=== PATIENT | female | born 1930 | race Caucasian/White ===

== ENCOUNTER 2016-06-05 09:58 | Emergency (ER) | payer OTHER ==
[~2016-06-05] VITALS: Ht 175.3 cm; Wt 67.6 kg
[2016-06-05 10:46] LABS: ABSOLUTE BASOPHIL COUNT 0 /CUMM (0.0-0.2); ABSOLUTE EOSINOPHIL COUNT 0.1 /CUMM (0.0-0.7); ABSOLUTE GRANULOCYTE CT 4.2 /CUMM (1.4-6.5); ABSOLUTE LYMPH COUNT 1.4 /CUMM (1.2-3.4); ABSOLUTE MONOCYTE COUNT 0.3 /CUMM (0.10-0.60); BASOPHIL % 0.2 % (0.0-2.0); EOSINOPHIL % 0.9 % (0-5); GRANULOCYTE % 70.1 % (42.2-75.2); HEMATOCRIT 34.1 % (37-47); MEAN CORPUSCULAR HGB 33.2 PG (27.0-31.0); MEAN CORPUSCULAR HGB CONC 34.2 G/DL (33.0-37.0); MEAN CORPUSCULAR VOLUME 97.1 FL (81.0-99.0); MEAN PLATELET VOLUME 8.8 FL (7.4-10.4); PLATELET COUNT 178 /CUMM (130-400); RED BLOOD CELL CT 3.51 /CUMM (4.20-5.40); WHITE BLOOD CELL COUNT 5.9 /CUMM (4.8-10.8)
--- NOTE | 2016-06-05 11:14 | ED GI/GU/ABDOMINAL COMPLAINT ---
History of Present Illness General Chief Complaint: Abdominal Pain/Flank Pain Stated Complaint: ABD PAIN Source: patient, old records Exam Limitations: no limitations Vital Signs & Intake/Output Vital Signs & Intake/Output Vital Signs Date Time Temp Pulse Resp B/P B/P Pulse O2 O2 Flow FiO2 Mean Ox Delivery Rate 06/05 1730 98.0 78 17 109/53 99 Room Air 06/05 1615 97.8 71 16 155/72 97 Room Air 06/05 1346 98.1 81 16 144/69 98 06/05 1209 97.0 80 18 126/72 99 Room Air 06/05 1018 96 06/05 1007 96.5 97 20 107/71 100 Room Air Room Air Allergies Coded Allergies: meperidine (From DEMEROL) (Intermediate, NAUSEA/VOMITING 06/05/16) propoxyphene (From DARVON) (Intermediate, NAUSEA/VOMITING 06/05/16) Reconcile Medications Calcium Citrate/Vitamin D3 (Citracal + D Maximum Caplet) 315 MG-250 UNIT TABLET 1 TAB PO DAILY SUPPLEMENT (Reported) Multivit-Min/FA/Lycopen/Lutein (Centrum Silver Tablet) 0.4 MG-300 MCG-250 MCG TABLET 1 TAB PO DAILY SUPPLEMENT (Reported) Omeprazole Magnesium (Prilosec Otc) 20 MG TABLET.DR 1 TAB PO DAILY ANTACID ( Reported) Triage Note: PT TO ED WITH C/O LEFT LOWER GROIN AREA PAIN X 10 DAYS, WITH DIARRHEA "SOMETIMES IT'S NORMAL THEN A HALF HOUR LATER IT'S DIARRHEA, NOW I'M INCONTINENT OF STOOL". PT STATING STOOL IS REGULAR BROWN COLOR. Triage Nurses Notes Reviewed? yes ? n Is pt currently ? No HPI: Patient presents for evaluation of sharp left lower quadrant and pelvic pain that began intermittently and abruptly about 2 weeks ago. Starting about 3 days ago patient began having diarrhea with incontinence. The episodes of diarrhea have occurred up to 7 times a day. Patient has also had a decrease in appetite and weight loss of about 6 pounds. Stools have been nonbloody. Patient has felt nauseous but has had no vomiting. Denies urinary incontinence or dysuria. No recent antibiotics or known ill contacts. Past History Travel History Traveled to [place] past 21 day No Medical History Any Pertinent Medical History? 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 No Review of Systems Review of Systems Constitutional: Reports: no symptoms. EENTM: Reports: no symptoms. Respiratory: Reports: no symptoms. Cardiovascular: Reports: no symptoms. GI: Reports: see HPI. Genitourinary: Reports: no symptoms. Musculoskeletal: Reports: no symptoms. Skin: Reports: no symptoms. Neurological/Psychological: Reports: no symptoms. Hematologic/Endocrine: Reports: no symptoms. Immunologic/Allergic: Reports: no symptoms. All Other Systems: Reviewed and Negative Physical Exam Physical Exam Gastrointestinal: SEE BELOW Comments: Gen.: Well-nourished, well-developed, no acute respiratory distress. Uncomfortable appearing. Head: Normocephalic, atraumatic. Eyes: Normal inspection bilaterally Ears: Normal inspection bilaterally Nose: Normal inspection Throat/mouth : Moist mucosa Neck: Supple, full range of motion, no goiter Heart: Regular rate and rhythm, no murmurs rubs or gallops Lungs: Clear to auscultation bilaterally with normal air entry Chest: Nontender Back: Normal range of motion no CVAT Abdomen: Soft, left lower quadrant and suprapubic abdominal tenderness with voluntary guarding, nondistended, normal bowel sounds Extremities: Normal range of motion grossly, equal radial pulses, no cyanosis clubbing or edema Neurologic: Cranial nerves grossly intact, speech is clear Skin: warm and dry Psychiatric: Calm, cooperative, no apparent delusions or hallucinations Core Measures ACS in differential dx? No Severe Sepsis Present: No Septic Shock Present: No Progress Differential Diagnosis: kidney stone, ovarian cyst, ovarian torsion, UTI/pyelo Plan of Care: Orders Procedure Date/time Status Regular Diet 06/05 D Active LACTIC ACID 06/05 2000 Active LACTIC ACID 06/05 1701 Active Add-on Test (ER Only) 06/05 1114 Active URINALYSIS 06/05 1114 Complete LIPASE 06/05 1039 Complete COMPREHENSIVE METABOLIC PANEL 06/05 1023 Complete CBC WITHOUT DIFFERENTIAL 06/05 1023 Complete Laboratory Tests 06/05/16 1717: Lactic Acid Pending 06/05/16 1611: Urine Color YEL, Urine Clarity CLEAR, Urine pH 6.0, Ur Specific [place] 1.020, Urine Protein TRACE H, Urine Ketones 15 H, Urine Nitrite NEG, Urine Bilirubin NEG, Urine Urobilinogen 0.2, Ur Leukocyte Esterase TRACE H, Ur Microscopic SEDIMENT EXAMINED, Urine RBC RARE, Urine WBC 5-10 H, Ur Epithelial Cells FEW, Urine Bacteria FEW H, Hyaline Casts 10-15 H, Granular Casts 1-3 H, Urine Hemoglobin NEG, Urine Glucose NEG 06/05/16 1039: Anion Gap 13, Estimated GFR 31 L, BUN/Creatinine Ratio 10.0, Glucose 120 H, Calcium 10.3 H, Total Bilirubin 1.2, AST 31, ALT 31, Alkaline Phosphatase 108, Total Protein 7.2, Albumin 4.0, Globulin 3.2, Albumin/Globulin Ratio 1.3, Lipase 150, CBC w Diff NO MAN DIFF REQ, RBC 3.51 L, MCV 97.1, MCH 33.2 H, RDW 13.0, MPV 8.8, Gran % 70.1, Lymphocytes % 23.9, Monocytes % 4.9, Eosinophils % 0.9, Basophils % 0.2, Absolute Granulocytes 4.2, Absolute Lymphocytes 1.4, Absolute Monocytes 0.3, Absolute Eosinophils 0.1, Absolute Basophils 0, PUBS MCHC 34.2 Diagnostic Imaging: Discussed w/RAD: CT Scan, Ultrasound. Radiology Impression: PATIENT: MARIA L DYSON PRESENT AGE: 86 PATIENT ACCOUNT NO: [id number] : 31 LOCATION: [facility] ORDERING PHYSICIAN: ANYA LAMBERT MD SERVICE DATE: 06/05/16 EXAM TYPE: CAT - CT ABD & PELVIS W/O IV CONTRAS EXAMINATION: CT ABDOMEN AND PELVIS WITHOUT CONTRAST CLINICAL INFORMATION: Left lower quadrant, suprapubic abdominal pain and tenderness. COMPARISON: 03/22/2013 TECHNIQUE: Multidetector volumetric imaging was performed from the superior aspect of the liver through the pubic symphysis. Sagittal and coronal reformatted images were obtained on the technologist's workstation. DLP: 271 mGy-cm FINDINGS: LUNG BASES: The lung bases are clear. Coronary artery calcifications noted. LIVER, GALLBLADDER, AND BILIARY TREE: The liver is normal in size, shape, and attenuation. No focal hepatic lesion or biliary ductal dilatation is present. Status post cholecystectomy. PANCREAS: Unremarkable. SPLEEN: Unremarkable. ADRENAL GLANDS: Unremarkable. KIDNEYS AND URETERS: The kidneys are normal in size, shape, and attenuation. There is moderate left hydroureteronephrosis. The ureter is tortuous and coarse. This extends to a prominent cystic structure in the central pelvis where the ureter is no longer visualized. The ureter is likely compressed and obstructed. The right kidney demonstrates no hydronephrosis. The ureter is decompressed. BLADDER : The bladder is inferiorly displaced but otherwise appears unremarkable. GASTROINTESTINAL TRACT: The stomach is unremarkable. There is a 1.2 cm lipoma in the wall of the fourth portion of the duodenum. The small bowel is otherwise unremarkable. There is colonic diverticulosis without diverticulitis. No acute inflammatory changes are seen. Distal colonic anastomotic suture line is noted. The distal colon is also displaced, to the right, by the cystic pelvic mass. ABDOMINAL WALL: No significant hernia is appreciated. LYMPH NODES: Normal. VASCULAR: Moderate atherosclerotic calcifications. PELVIC VISCERA: There is a cystic mass in the central pelvis which measures 14.1 cm AP by 10.8 cm transverse by 12.7 cm CC. This measures slightly higher than simple fluid attenuation. The prior CT demonstrated prominent fluid-filled distended endometrium with no adnexal mass. The current appearance is more suspicious for an adnexal mass, as the uterus is not well visualized on the current study an surgical clips are noted. Multiple phleboliths are present in the pelvis. OSSEOUS STRUCTURES: Multilevel degenerative changes of the spine. Grade 1 anterolisthesis of L3 on L4 and L4 on L5. Multilevel disc space narrowing. IMPRESSION: Prominent, likely cystic pelvic mass with mass effect upon the adjacent structures. Compression by the mass likely results in moderate left hydroureteronephrosis. There is also mass effect upon the adjacent bowel. While the origin is nonspecific, the appearance favors adnexal origin. DICTATED BY: PAOLA SERRATO MD DATE/TIME DICTATED:06/05/161238 MAINTENANCE SUPERVISOR: STACY DATE/TIME TRANSCRIBED:06/05/161238 CONFIDENTIAL, DO NOT COPY WITHOUT APPROPRIATE AUTHORIZATION. <Electronically signed in Other Vendor System> SIGNED BY: PAOLA SERRATO MD 06/05/16 1250, PATIENT: MARIA L DYSON PRESENT AGE: 86 PATIENT ACCOUNT NO: [id number] : 31 LOCATION: [facility] ORDERING PHYSICIAN: ANYA LAMBRET MD SERVICE DATE: 06/05/16-1253 EXAM TYPE: US - US-PELVIC MASS DIAG EXAMINATION: ULTRASOUND OF THE PELVIS CLINICAL INFORMATION: Further assessment of likely left ovarian cystic mass seen on CT scan. COMPARISON: CT scan of the abdomen pelvis dated and 03/22/2013. TECHNIQUE: Transabdominal pelvic ultrasound. Real-time assessment by the reading radiologist was performed. FINDINGS: Uterus: Surgically absent. Ovaries: The ovaries bilaterally are not distinctly visualized. Instead, there is a large complex cystic pelvic mass, which extends superiorly into the left upper pelvis, measuring 17.0 x 9.7 x 1.2 cm. There is a large lobulated solid echogenic component seen along the posterior left lateral margin of the cystic mass, measuring at least 3.6 x 2.7 x 5.1 cm. Other low level internal echoes are also noted. With color Doppler imaging, no discrete flow is visualized within this complex cystic mass. Bladder/left ureter: This mass causes obstruction of the left ureter as seen on the CT scan with moderate left-sided hydroureteronephrosis seen. The left ureter distal to the mass is not discretely visualized. The bladder is only partially distended and grossly unremarkable. No urine jets were seen. IMPRESSION: 1. Large complex cystic mass with nodular peripheral solid components seen extending from the pelvis into the left lower abdomen. 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 Resultant obstruction of the left kidney is seen with moderate hydroureteronephrosis noted. 2. Status post hysterectomy. DICTATED BY: DALI AMATO MD. DATE/TIME DICTATED:06/05/161444 MAINTENANCE SUPERVISOR:STACY DATE/ TIME TRANSCRIBED:06/05/161444 CONFIDENTIAL, DO NOT COPY WITHOUT APPROPRIATE AUTHORIZATION. <Electronically signed in Other Vendor System> SIGNED BY: DALI AMATO MD 06/05/16 4326 Initial ED EKG: none Comments: 06/05/2016 4:17:19 PM I updated Maria L earlier and then updated her daughter. I' ve discussed her case with Dr. Mike who felt we should consult Dr. Simons regarding her treatment plan. 06/05/2016 4:31:10 PM patient's case discussed with Dr. mcrae who feels that the patient would be best served at [facility]. 06/05/2016 5:02:32 PM patient's case discussed with dr. bueno, who has accepted the patient in transfer. He asked to add a lactic acid level. Departure Departure Disposition: OTHER GENERAL HOSPITAL (ACUTE) Condition: Stable Clinical Impression Primary Impression: Pelvic mass in female Referrals: DAHIANA MIKE MD (PCP/Family) Departure Forms: Customer Survey General Discharge Information
--- NOTE | 2016-06-05 12:50 | CT SCAN REPORT ---
EXAMINATION: CT ABDOMEN AND PELVIS WITHOUT CONTRAST CLINICAL INFORMATION: Left lower quadrant, suprapubic abdominal pain and tenderness. COMPARISON: 03/22/2013 TECHNIQUE: Multidetector volumetric imaging was performed from the superior aspect of the liver through the pubic symphysis. Sagittal and coronal reformatted images were obtained on the technologist's workstation. DLP: 271 mGy-cm FINDINGS: LUNG BASES: The lung bases are clear. Coronary artery calcifications noted. LIVER, GALLBLADDER, AND BILIARY TREE: The liver is normal in size, shape, and attenuation. No focal hepatic lesion or biliary ductal dilatation is present. Status post cholecystectomy. PANCREAS: Unremarkable. SPLEEN: Unremarkable. ADRENAL GLANDS: Unremarkable. KIDNEYS AND URETERS: The kidneys are normal in size, shape, and attenuation. There is moderate left hydroureteronephrosis. The ureter is tortuous and coarse. This extends to a prominent cystic structure in the central pelvis where the ureter is no longer visualized. The ureter is likely compressed and obstructed. The right kidney demonstrates no hydronephrosis. The ureter is decompressed. BLADDER: The bladder is inferiorly displaced but otherwise appears unremarkable. GASTROINTESTINAL TRACT: The stomach is unremarkable. There is a 1.2 cm lipoma in the wall of the fourth portion of the duodenum. The small bowel is otherwise unremarkable. There is colonic diverticulosis without diverticulitis. No acute inflammatory changes are seen. Distal colonic anastomotic suture line is noted. The distal colon is also displaced, to the right, by the cystic pelvic mass. ABDOMINAL WALL: No significant hernia is appreciated. LYMPH NODES: Normal. VASCULAR: Moderate atherosclerotic calcifications. PELVIC VISCERA: There is a cystic mass in the central pelvis which measures 14.1 cm AP by 10.8 cm transverse by 12.7 cm CC. This measures slightly higher than simple fluid attenuation. The prior CT demonstrated prominent fluid-filled distended endometrium with no adnexal mass. The current appearance is more suspicious for an adnexal mass, as the uterus is not well visualized on the current study an surgical clips are noted. Multiple phleboliths are present in the pelvis. OSSEOUS STRUCTURES: Multilevel degenerative changes of the spine. Grade 1 anterolisthesis of L3 on L4 and L4 on L5. Multilevel disc space narrowing. IMPRESSION: Prominent, likely cystic pelvic mass with mass effect upon the adjacent structures. Compression by the mass likely results in moderate left hydroureteronephrosis. There is also mass effect upon the adjacent bowel. While the origin is nonspecific, the appearance favors adnexal origin.
--- NOTE | 2016-06-05 14:58 | ULTRASOUND REPORT ---
EXAMINATION: ULTRASOUND OF THE PELVIS CLINICAL INFORMATION: Further assessment of likely left ovarian cystic mass seen on CT scan. COMPARISON: CT scan of the abdomen pelvis dated 06/05/2016 and 03/22/2013. TECHNIQUE: Transabdominal pelvic ultrasound. Real-time assessment by the reading radiologist was performed. FINDINGS: Uterus: Surgically absent. Ovaries: The ovaries bilaterally are not distinctly visualized. Instead, there is a large complex cystic pelvic mass, which extends superiorly into the left upper pelvis, measuring 17.0 x 9.7 x 1.2 cm. There is a large lobulated solid echogenic component seen along the posterior left lateral margin of the cystic mass, measuring at least 3.6 x 2.7 x 5.1 cm. Other low level internal echoes are also noted. With color Doppler imaging, no discrete flow is visualized within this complex cystic mass. Bladder/left ureter: This mass causes obstruction of the left ureter as seen on the CT scan with moderate left-sided hydroureteronephrosis seen. The left ureter distal to the mass is not discretely visualized. The bladder is only partially distended and grossly unremarkable. No urine jets were seen. IMPRESSION: 1. Large complex cystic mass with nodular peripheral solid components seen extending from the pelvis into the left lower abdomen. 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 Resultant obstruction of the left kidney is seen with moderate hydroureteronephrosis noted. 2. Status post hysterectomy.
[2016-06-05] MEDS ORDERED: CENTRUM SILVER1 EAC3 PO (16:17)
[2016-06-05] MEDS ORDERED: PRILOSEC OTC20 M1 PO (16:17)
[2016-06-05] MEDS ORDERED: CITRACAL + D M1 EACH PO (16:18)
[2016-06-05 17:30] VITALS: BP 109/53
== END 2016-06-05 17:54 | disposition short-term general hospital (02) ==
LOC: ERH 09:58
PROVIDERS: Emergency Medicine
DX: R19.09 Other intra-abdominal and pelvic swelling, mass and lump (principal); K21.9 Gastro-esophageal reflux disease without esophagitis; Z87.891 Personal history of nicotine dependence
CPT/HCPCS: 74176; 81001; 96374; 96375; 96376; J2405

== ENCOUNTER 2016-07-20 10:37 | Emergency (ER) | payer OTHER ==
[~2016-07-20] VITALS: Ht 175.3 cm; Wt 63.5 kg
[~2016-07-20 10:37] MED LIST: CENTRUM SILVER1 EAC3 PO; CITRACAL + D M1 EACH PO; PRILOSEC OTC20 M1 PO
--- NOTE | 2016-07-20 11:06 | ED GI/GU/ABDOMINAL COMPLAINT ---
History of Present Illness General Chief Complaint: General Adult Stated Complaint: RECTAL BLEEDING Source: patient, old records Exam Limitations: no limitations Vital Signs & Intake/Output Vital Signs & Intake/Output Vital Signs Date Time Temp Pulse Resp B/P B/P Pulse O2 O2 Flow FiO2 Mean Ox Delivery Rate 07/20 1345 97.6 86 18 112/60 100 Room Air 06/ 1330 97.6 89 16 110/56 99 Room Air / 1323 97.7 80 20 110/56 97 Room Air / 1058 99 Room Air / 1041 96.8 90 16 128/78 100 Room Air Allergies Coded Allergies: meperidine (From DEMEROL) (Intermediate, NAUSEA/VOMITING 06/05/16) propoxyphene (From DARVON) (Intermediate, NAUSEA/VOMITING 06/05/16) Reconcile Medications Calcium Citrate/Vitamin D3 (Citracal + D Maximum Caplet) 315 MG-250 UNIT TABLET 1 TAB PO DAILY SUPPLEMENT (Reported) Multivit-Min/FA/Lycopen/Lutein (Centrum Silver Tablet) 0.4 MG-300 MCG-250 MCG TABLET 1 TAB PO DAILY SUPPLEMENT (Reported) Omeprazole Magnesium (Prilosec Otc) 20 MG TABLET.DR 1 TAB PO DAILY ANTACID ( Reported) Triage Note: PT TO ED WITH RECTAL BLEEDING. STATES SHE HAD A CYST REMOVAL IN MAY. ON STARTED TO HAVE BLEEDING AND PCP TOLD HER IT WAS NORMAL DUE TO THE PROCEDURE SHE HAD. STATES THAT STOOL IS DARK RED AND SOFT AND HAS BEEN CONSISTENT SINCE . DENIES ANY ABD PAIN. Triage Nurses Notes Reviewed? yes ? N Is pt currently ? No Onset: Gradual Duration: constant Timing: recent history Severity Numbers: 5 Location: generalized abdomen HPI: Patient is an 86-year-old female with a past medical history of osteoarthritis, in 2014 patient was noted to have concerns of uterine and colon cancer in WHICH she had a total hysterectomy and a partial colectomy performed, patient also had concerned of GI bleed in 2013 due to mesenteric ischemia WITH admission patient also received cholecystectomy, patient in May 2016 was evaluated at [place] emergency room for concerns of abdominal pain where she had significant findings of a 17 x 9 CM pelvic mass which she was then transferred to [facility] where she had surgical removal of the pelvic mass and partial colectomy removed. Patient states that she has been doing well since her surgery in which her oncologist AT [facility] DR. SOMMER where patient presents to emergency room with concerns of rectal bleeding for the past 6 days. Patient states that she has spontaneous bleeds approximate twice a day however in the last 24 hours the bleeding has persistently worsened. Patient has associated symptoms today of shortness of breath lightheaded sensation dizziness and PALE complexion. Patient was evaluated by DR. SOMMER on in which he stated that the symptoms were common and reassurance was provided. Patient did receive outpatient CT scan today prior to arrival. Patient currently denies any fever chills chest pain arm pain jaw pain abdominal pain nausea vomiting dysuria hematuria Last bowel movement was yesterday noted to have surrounding bright red blood and formed stool. Patient is able to tolerate by mouth (GEOFF CRAIG) Past History Travel History Traveled to [facility] past 21 day No Medical History Any Pertinent Medical History? see below for history Neurological: NONE EENT: NONE Cardiovascular: NONE Respiratory: NONE Gastrointestinal: diverticulitis, GERD, GI BLEED BOWEL CA MESENTERIC ISCHEMIA Hepatic: cirrhosis Renal: NONE Musculoskeletal: osteoarthritis Psychiatric: NONE Endocrine: NONE Blood Disorders: NONE Cancer(s): UTERINE CA, BOWEL CA ROCK SINGER/Reproductive: NONE Surgical History Surgical History: cholecystectomy, colon resection, hysterectomy Psychosocial History Who do you live with Spouse Services at Home NONE What is your primary language Kyrgyz Tobacco Use: Never used Family History Hx Contributory? No (GEOFF CRAIG) Review of Systems Review of Systems Constitutional: Reports: see HPI, weakness. EENTM: Reports: no symptoms. Respiratory: Reports: see HPI, short of breath. Cardiovascular: Reports: no symptoms. GI: Reports: see HPI, bloody stool. Denies: abdominal pain. Genitourinary: Reports: no symptoms. Musculoskeletal: Reports: no symptoms. Skin: Reports: no symptoms. Neurological/Psychological: Reports: no symptoms. Hematologic/Endocrine: Reports: no symptoms. Immunologic/Allergic: Reports: no symptoms. All Other Systems: Reviewed and Negative (GEOFF CRAIG) Physical Exam Physical Exam General Appearance: well developed/nourished, no apparent distress Gastrointestinal: normal bowel sounds, soft, tenderness Rectal: normal rectal tone, bloody stool, NOTED DRY BLOOD AROUND THE RECTAL REGION BRIGHT RED BLOOD NOTED AFTER DIGITAL RECTAL EXAM Comments: Well-developed well-nourished person in no acute distress HEENT: Normal EENT exam, Neck: Supple, no lymphadenopathy, normal range of motion without pain or tenderness Back: Nontender, no CVA tenderness. Cardiovascular: Regular rate and rhythms no murmurs rubs or gallops, normal JVP Respiratory: Chest nontender. No respiratory distress.breath sounds clear to auscultation bilaterally Abdomen: Soft, GENERALIZED point tenderness noted Extremity: No edema, no calf tenderness to palpation, normal and equal pulses. Neuro: Alert oriented x3, motor sensory normal, Skin: No appreciable rash on exposed skin, skin is warm and dry. Psych: Mood and affect is normal, memory and judgment is normal. Core Measures ACS in differential dx? No Severe Sepsis Present: No Septic Shock Present: No (DARSHAN MARTINEZ,GEOFF) Progress Differential Diagnosis: AAA, AMI, appendicitis, biliary colic, bowel obstruction , colon cancer, cholecystitis, diverticulitis, endometritis, esophageal varices, gastritis, hepatitis, hernia, hemorrhoids, ischemic bowel, inflamm bowel dis, kidney stone, ovarian cyst, ovarian torsion, pancreatitis, PID/cervicitis, peptic ulcer, PUD/GERD, perforated viscous, SBO, UTI/pyelo Plan of Care: Orders Procedure Date/time Status BLOOD PRODUCT PICKUP 07/20 1259 Active LEUKOCYTE POOR (PACKED CELLS) 07/20 1226 Active EKG 07/20 1130 Active MISTAKE 07/20 1127 Active PARTIAL THROMBOPLASTIN TIME 07/20 1117 Complete PROTHROMBIN TIME 07/20 1117 Complete COMPREHENSIVE METABOLIC PANEL 07/20 1117 Complete CBC WITHOUT DIFFERENTIAL 07/20 1117 Complete TYPE & SCREEN (NOT X-MATCH) 07/20 1117 Active Laboratory Tests 07/20/16 1145: Anion Gap 10, Estimated GFR 39 L, BUN/Creatinine Ratio 29.2 H, Glucose 88, Calcium 9.1, Total Bilirubin 0.9, AST 26, ALT 34, Alkaline Phosphatase 101, Total Protein 5.8 L, Albumin 3.2 L, Globulin 2.6, Albumin/Globulin Ratio 1.2, PT 11.6, INR 1.11, APTT 38 H, CBC w Diff MAN DIFF ORDERED, RBC 2.14 L, MCV 94.3, MCH 31.3 H, RDW 14.9 H, MPV 8.8, Gran % 64.2, Lymphocytes % 28.8, Monocytes % 6.2, Eosinophils % 0.3, Basophils % 0.5, Absolute Granulocytes 3.5, Absolute Lymphocytes 1.6, Absolute Monocytes 0.3, Absolute Eosinophils 0, Absolute Basophils 0, Platelet Estimate DECREASED, Hypochromic-Microcytic 2+, Anisocytosis 1+, PUBS MCHC 33.1 Patient on initial examination was in no apparent distress nontoxic-appearing normal tensive and afebrile. Patient does show concerns of GI bleed in which there is noted bright red blood from rectum CT scan was resulted showing concerns of a new heterogeneous pelvic mass that has reoccurred in which I discussed the scan with patient who was aware I also discussed patient with [facility]ON[facility] DR JACKSON who advised patient to be accepted under his service for transfer for specialty care and further evaluation treatment. Patient did sign consent form for blood transfusion which patient Discussed disposition plan with Dr. Mike who was aware of plan and agrees. Discussed disposition plan with case management who was aware. Discussed disposition plan with Dr. ANDERSON who was aware and agrees Upon transfer patient looks well no apparent distress and has no questions and agrees with transfer and signed consent form (GEOFF CRAIG) Diagnostic Imaging: Viewed by Me: CT Scan. Radiology Impression: acute abnormality Initial ED EKG: normal p-waves, normal QRS complex, 85 BPM Comments: PATIENT: BRAYAN DYSON PRESENT AGE: 86 PATIENT ACCOUNT NO: [id number] : 31 LOCATION: [facility] ORDERING PHYSICIAN: STEFF SOMMER MD SERVICE DATE: 07/20/16 EXAM TYPE: CAT - CT ABD & PELVIS W IV CONTRAST; CT CHEST W IV CONTRAST EXAMINATION: CT SCAN OF THE CHEST WITH CONTRAST CT SCAN OF THE ABDOMEN AND PELVIS WITH CONTRAST CLINICAL INFORMATION: Endometrial cancer. COMPARISON: CT abdomen and pelvis 06/05/2016. CT chest, abdomen, pelvis 05/23/2014. DLP: 271 mGy-cm. TECHNIQUE: Axial images of the chest, abdomen, and pelvis were obtained utilizing 100 mL Omnipaque-300 contrast and oral contrast. Reformatted images were reviewed. No adverse reaction reported. FINDINGS: Thorax: There are multifocal tubular/nodular opacities within the anterior aspect of the right upper lobe on images 137-175/1000. These were present on examination 05/23/2014. A few other scattered calcified and noncalcified tiny pulmonary nodules were present in 2014. No new suspicious pulmonary nodules. No pleural effusion. The trachea and central airways are patent. No new mediastinal adenopathy. Scattered atherosclerotic disease including coronary artery calcification. Abdomen/Pelvis: No pneumoperitoneum or ascites. No focal hepatic, pancreatic, splenic, or adrenal lesion. Cholecystectomy clips noted. There is nonspecific intrahepatic biliary ductal dilatation in the left lobe of the liver, coronal image 35/95. There is left-sided hydroureteronephrosis extending to the left hemipelvis, where there is amorphous heterogeneous masslike soft tissue along the left pelvic sidewall measuring approximately 5.4 x 3.5 x 5.9 cm. The hydronephrosis was present on prior CT scan. No right-sided hydronephrosis. There is a small chronic right renal cyst. No suspicious renal mass. Bowel gas pattern is nonobstructive. No evidence of acute bowel inflammation. Surgical anastomotic material in the sigmoid colon. Colonic diverticulosis without evidence of diverticulitis. Postsurgical changes of the ventral abdominal wall with associated scarring. Surgical clip is noted within the ventral abdominal wall as well as within the anterior aspect of the lower peritoneal cavity. Numerous pelvic phleboliths. Scattered atherosclerotic disease. No pathologically enlarged lymph nodes are demonstrated. The bladder is unremarkable. The uterus is absent. No suspicious right adnexal mass. Musculoskeletal: No acute osseous abnormalities. No suspicious lytic or blastic lesion. There is grade 1 anterolisthesis of L3 on L4 and L4 on L5. Multilevel degenerative changes of the spine. IMPRESSION: 1. Interval resection of the large cystic pelvic mass described on previous CT 06/05/2016. There is new heterogeneous soft tissue mass along the left pelvic sidewall (see hall images). Persistent left hydroureteronephrosis extending from this amorphous mass. 2. Chronic endobronchial and small pulmonary nodules (see hall images). This includes branching endobronchial nodular opacification in the right upper lobe. No convincing thoracic metastatic disease. 3. No adenopathy. 4. Diverticulosis without evidence of diverticulitis. 5. Nonspecific left intrahepatic biliary ductal dilatation. Attention on follow-up imaging recommended. 6. Diffuse atherosclerotic disease including coronary artery calcification. 7. Additional findings as described above. DICTATED BY: IRMA MABRY MD DATE/TIME DICTATED:07/20/161121 ORDER PULLER:STACY DATE/TIME TRANSCRIBED:07/20/161121 (GEOFF CRAIG) Departure Departure Disposition: OTHER GENERAL HOSPITAL (ACUTE) Condition: Stable Clinical Impression Primary Impression: Pelvic mass Secondary Impressions: Anemia, GI bleed Referrals: DAHIANA MIKE MD (PCP/Family) Departure Forms: Customer Survey General Discharge Information (GEOFF CRAIG) PA/MAIL DELIVERY SUPERVISOR Co-Sign Statement Statement: ED Attending supervision documentation- x I saw and evaluated the patient. I have also reviewed all the pertinent lab results and diagnostic results. I agree with the findings and the plan of care as documented in the PA's/MAIL DELIVERY SUPERVISOR's documentation. [] I have reviewed the ED Record and agree with the PA's/MAIL DELIVERY SUPERVISOR's documentation. [] Additions or exceptions (if any) to the PAs/MAIL DELIVERY SUPERVISOR's note and plan are summarized below: [] (MONICA AGUIAR,MONA) Critical Care Note Critical Care Note Critical Care Time: 75-104 min (GEOFF CRAIG)
[2016-07-20 12:01] LABS: ABSOLUTE BASOPHIL COUNT 0 /CUMM (0.0-0.2); ABSOLUTE EOSINOPHIL COUNT 0 /CUMM (0.0-0.7); ABSOLUTE GRANULOCYTE CT 3.5 /CUMM (1.4-6.5); ABSOLUTE LYMPH COUNT 1.6 /CUMM (1.2-3.4); ABSOLUTE MONOCYTE COUNT 0.3 /CUMM (0.10-0.60); MEAN PLATELET VOLUME 8.8 FL (7.4-10.4); PLATELET COUNT 140 /CUMM (130-400)
[2016-07-20 12:07] LABS: BASOPHIL % 0.5 % (0.0-2.0); EOSINOPHIL % 0.3 % (0-5); GRANULOCYTE % 64.2 % (42.2-75.2); MEAN CORPUSCULAR HGB 31.3 PG (27.0-31.0); MEAN CORPUSCULAR HGB CONC 33.1 G/DL (33.0-37.0); MEAN CORPUSCULAR VOLUME 94.3 FL (81.0-99.0); RBC DISTRIBUTION WIDTH 14.9 % (11.5-14.5); WHITE BLOOD CELL COUNT 5.4 /CUMM (4.8-10.8)
[2016-07-20 12:11] LABS: PT 11.6 SEC (9.4-12.5); PTT 38 SEC (25-37)
[2016-07-20 12:22] LABS: HEMATOCRIT 20.2 % (37-47); RED BLOOD CELL CT 2.14 /CUMM (4.20-5.40)
[2016-07-20 13:45] VITALS: BP 112/60
== END 2016-07-20 14:24 | disposition short-term general hospital (02) ==
LOC: ERH 10:37
PROVIDERS: Physician Assistant
DX: R19.09 Other intra-abdominal and pelvic swelling, mass and lump (principal); K92.2 Gastrointestinal hemorrhage, unspecified; D64.9 Anemia, unspecified; K74.60 Unspecified cirrhosis of liver
CPT/HCPCS: 86920; 93005; 93010; 99291; P9016

== ENCOUNTER 2017-01-07 10:37 | Emergency (ER) | payer OTHER ==
[~2017-01-07] VITALS: Ht 175.3 cm; Wt 68.5 kg
[~2017-01-07 10:37] MED LIST changes: +LASIX20 M1 PO; +OMEPRAZOLE20 M3 PO
--- NOTE | 2017-01-07 11:23 | ED GENERAL ADULT ---
History of Present Illness General Chief Complaint: General Adult Stated Complaint: WEAK/SOB Source: patient, family Exam Limitations: no limitations Vital Signs & Intake/Output Vital Signs & Intake/Output Vital Signs Date Time Temp Pulse Resp B/P B/P Pulse O2 O2 Flow FiO2 Mean Ox Delivery Rate 01/07 1747 99.2 94 20 137/64 98 Room Air 01/07 1724 98.6 85 19 128/78 96 Room Air 01/07 1533 98.1 94 20 122/60 97 Room Air 01/07 1350 96.4 87 18 124/60 94 01/07 1347 98.4 96 20 114/73 98 Room Air 01/07 1332 98.6 98 20 124/60 99 Room Air 01/07 1102 100 Room Air 01/07 1048 98.1 95 20 109/55 98 Allergies Coded Allergies: meperidine (From DEMEROL) (Intermediate, NAUSEA/VOMITING 06/05/16) propoxyphene (From DARVON) (Intermediate, NAUSEA/VOMITING 06/05/16) aspirin (UNKNOWN 11/14/16) PER SPR ORDER SHEET FROM 11/14/16. -CG 11/14/16 Reconcile Medications Furosemide (Lasix) 20 MG TABLET 1 TAB PO DAILY PRN leg swelling (Reported) Omeprazole 20 MG TABLET.DR 1 TAB PO DAILY stomach (Reported) Triage Note: 86 YEAR OLD FEMALE TO ER VIA AMBULANCE FROM HER HOME FOR WEAKNESS AND SOB, PT ALERT AND ORIENTED ON ARRIVAL AND STATES THAT SHE HAS ENDOMETRIAL CANCER THAT CHEMO HAS NOT HELPED, PT STATES THAT SHE NO LONGER WANTS CHEMOTHERAPY DUE TO IT DOES NOT HELP AND IT ONLY MAKES HER SICK, PT HAS BEEN [facility]LO[facility]SFUS[facility] AND STATES THAT SHE WAS TO WEAK TODAY SO SHE CALLED AMBULANCE AND CAME TO ER FOR TRANSFUSION. PT COLOR PALE , ALERT AND ORIENTED O2 SAT 97 % ON RA. PT REQUESTING TO STAY IN HER NIGHT GOWN AND ROBE DUE TO SHE IS COLD AND DOES NOT WANT TO CHANGE. DENIES CP/URINARY SYMPTOMS . Triage Nurses Notes Reviewed? yes Onset: Gradual Duration: week(s): Timing: recent history Injury Environment: home Severity: severe HPI: 86YO female with hx of stage III endometrial cancer, AML presents to emergency room with fatigue and shortness of breath by 2 days. Patient receives blood transfusion treatments once a week, and reports feeling much better for 2-3 days afterwards. Patient's last blood transfusion was last Thursday, she was due for an office visit today at the cancer center. Patient states that today her weakness was the worst it has been, will to get out of bed and go to her appointment with oncology. Patient states that an ambulance came to take her for blood transfusion here in the ED today. (Laine Streeter) Past History Travel History Traveled to [place] past 21 day No Medical History Any Pertinent Medical History? see below for history Neurological: NONE EENT: NONE Cardiovascular: NONE Respiratory: NONE Gastrointestinal: diverticulitis, GERD, GI BLEED BOWEL CA MESENTERIC ISCHEMIA Hepatic: cirrhosis Renal: NONE Musculoskeletal: osteoarthritis Psychiatric: NONE Endocrine: NONE Blood Disorders: NONE Cancer(s): UTRINE CA with bowel involvement RN CALL CENTER/Reproductive: NONE Surgical History Surgical History: cholecystectomy, colon resection, hysterectomy Psychosocial History Who do you live with Spouse Services at Home NONE What is your primary language Welsh Tobacco Use: Never used ETOH Use: denies use Illicit Drug Use: denies illicit drug use Family History Family History, If Any: Relation not specified for: *No pertinent family history Hx Contributory? No (Laine Streeter) Review of Systems Review of Systems Constitutional: Reports: see HPI. EENTM: Reports: no symptoms. Respiratory: Reports: see HPI. Cardiovascular: Reports: no symptoms. GI: Reports: no symptoms. Genitourinary: Reports: no symptoms. Musculoskeletal: Reports: no symptoms. Skin: Reports: no symptoms. Neurological/Psychological: Reports: no symptoms. Hematologic/Endocrine: Reports: see HPI. Immunologic/Allergic: Reports: no symptoms. All Other Systems: Reviewed and Negative (Laine Streeter) Physical Exam Physical Exam General Appearance: well developed/nourished, no apparent distress, alert, awake Head: atraumatic, normal appearance Eyes: Bilateral: normal appearance. Ears, Nose, Throat: hearing grossly normal Neck: normal inspection, supple, full range of motion Respiratory: normal breath sounds, no respiratory distress, lungs clear Cardiovascular: regular rate/rhythm Gastrointestinal: normal bowel sounds, soft, non-tender, no organomegaly Back: normal inspection, normal range of motion Extremities: normal inspection Neurologic/Psych: awake, alert, oriented x 3 Skin: intact, normal color, warm/dry Core Measures ACS in differential dx? Yes CVA/TIA Diagnosis: No Sepsis Present: No Sepsis Focused Exam Completed? No (Sarah MARTINEZ,Laine Patel) Progress Differential Diagnoses I considered the following diagnoses in my evaluation of the patient: [AMI, ACS, asthma, bronchitis, PNA, PE, malignancy, pleural effusion] Plan of Care: Orders Procedure Date/time Status BLOOD PRODUCT PICKUP 01/07 1516 Active BLOOD PRODUCT PICKUP 01/07 1314 Active LEUKOCYTE POOR (PACKED CELLS) 01/07 1307 Active TYPE & SCREEN (NOT X-MATCH) 01/07 1158 Complete CBC WITHOUT DIFFERENTIAL 01/07 1139 Complete Laboratory Tests 01/07/17 1215: CBC w Diff MAN DIFF ORDERED, RBC 1.49 L, MCV 85.8, MCH 29.9, RDW 15.2 H, MPV 8.1, Gran % 65.1, Lymphocytes % 25.6, Monocytes % 8.3, Eosinophils % 0.2, Basophils % 0.8, Absolute Granulocytes 1.2 L, Absolute Lymphocytes 0.5 L, Absolute Monocytes 0.1, Absolute Eosinophils 0, Absolute Basophils 0, Platelet Estimate DECREASED, Anisocytosis 1+, PUBS MCHC 34.8 Spoke with RN from cancer center: She states she spoke with patient's son, Braden, couldn't come in today for transfusion d/t weakness. Patient has Stage III urterine CA, AML. RN discussed hospice options for coming here to [place] with patient's son in [facility]. Patient had previously stated she was DNR/DNI and didn't want treatment before. They discussed hospice with her on a number of times however at that time she was refusing. Patient Was supposed to come in for weekly lab work and transfusion. RN recommends Get CBC for transfusion. Use two units only. No platelets unless actively bleeding. Patient requests transfusion only with no medical work up, such as CXR, EKG. She declines hospice or case management envolvement. Following transfusions patient requests to go home. She will follow up at cancer clinic as scheduled. Initial ED EKG: none (Sarah MARTINEZ,Laine Patel) Departure Departure Disposition: HOME OR SELF CARE Condition: Stable Clinical Impression Primary Impression: Weakness Secondary Impressions: AML (acute myeloblastic leukemia) Qualifiers: Leukemia Active/Remission status: without remission Qualified Code: C92.00 - Acute myeloblastic leukemia, not having achieved remission Referrals: Reji Mike MD (PCP/Family) Additional Instructions: Follow-up with your oncologist. Return with any worsening symptoms or concerns. Please note that there might be incidental findings in your evaluation that are unrelated to the current emergency department visit. Please notify your primary care doctor about this emergency department visit in order to obtain and review all of the testing performed so that these incidental findings can be monitored as needed. If you had an x-ray performed, please understand that some fractures may not be seen on the initial set of x-rays. If your symptoms persist you might need a repeat set of x-rays to check for such a fracture. If you had a laceration evaluated, please understand that foreign bodies such as glass or wood may not be visible to the naked eye or on plain x-rays. If the wound becomes red, swollen, increasingly more painful or if there is any drainage from the wound, please have it reevaluated by a physician for the possibility of a retained foreign body. If you're unable to follow up as outlined in the discharge instructions please return to the emergency department. Thank you for choosing the [facility] Emergency Department for your care. It was a pleasure to serve you today. Departure Forms: Customer Survey General Discharge Information (Sarah MARTINEZ,Laine Patel) PA/COCOA ROOM OPERATOR Co-Sign Statement Statement: ED Attending supervision documentation- x I saw and evaluated the patient. I have also reviewed all the pertinent lab results and diagnostic results. I agree with the findings and the plan of care as documented in the PA's/COCOA ROOM OPERATOR's documentation. [] I have reviewed the ED Record and agree with the PA's/COCOA ROOM OPERATOR's documentation. [] Additions or exceptions (if any) to the PAs/COCOA ROOM OPERATOR's note and plan are summarized below: [] (Demetra AGUIAR,aHn) Critical Care Note Critical Care Note Critical Care Time: non-applicable (Laien Streeter)
[2017-01-07 12:35] LABS: ABSOLUTE BASOPHIL COUNT 0 /CUMM (0.0-0.2); ABSOLUTE EOSINOPHIL COUNT 0 /CUMM (0.0-0.7); ABSOLUTE GRANULOCYTE CT 1.2 /CUMM (1.4-6.5); ABSOLUTE LYMPH COUNT 0.5 /CUMM (1.2-3.4); ABSOLUTE MONOCYTE COUNT 0.1 /CUMM (0.10-0.60); BASOPHIL % 0.8 % (0.0-2.0); EOSINOPHIL % 0.2 % (0-5); GRANULOCYTE % 65.1 % (42.2-75.2); MEAN CORPUSCULAR HGB 29.9 PG (27.0-31.0); MEAN CORPUSCULAR HGB CONC 34.8 G/DL (33.0-37.0); MEAN CORPUSCULAR VOLUME 85.8 FL (81.0-99.0); MEAN PLATELET VOLUME 8.1 FL (7.4-10.4); RBC DISTRIBUTION WIDTH 15.2 % (11.5-14.5); RED BLOOD CELL CT 1.49 /CUMM (4.20-5.40); WHITE BLOOD CELL COUNT 1.8 /CUMM (4.8-10.8)
[2017-01-07 12:41] LABS: HEMATOCRIT 12.8 % (37-47)
[2017-01-07 12:58] LABS: PLATELET COUNT 4 /CUMM (130-400)
[2017-01-07 17:47] VITALS: BP 137/64
== END 2017-01-07 18:16 ==
LOC: ERH 10:37
PROVIDERS: Physician Assistant
DX: C92.00 Acute myeloblastic leukemia, not having achieved remission (principal); R53.1 Weakness
CPT/HCPCS: 86920; 96365; 96374; P9016